=== PATIENT | male | born 1980 | race Caucasian/White ===

== ENCOUNTER 2019-02-25 14:57 | Emergency (ER) | payer MEDICAID ==
[~2019-02-25] VITALS: Ht 188 cm; Wt 74.8 kg
== END 2019-02-25 16:29 | disposition home or self-care (01) ==
LOC: ER 14:57
DX: S51.811A Laceration without foreign body of right forearm, initial encounter (principal); S40.211A Abrasion of right shoulder, initial encounter; M41.9 Scoliosis, unspecified; V86.99XA Unspecified occupant of other special all-terrain or other off-road motor vehicle injured in nontraffic accident, initial encounter
CPT/HCPCS: 73080; 90714